=== PATIENT | female | born 1990 | race Hispanic/Latino ===

== ENCOUNTER 2019-08-01 09:24 | Inpatient (IN) | payer MEDICAID ==
[2019-08-01] MEDS ORDERED: ZOFRAN IV PRN (10:14)
[2019-08-01] MEDS ORDERED: BRETHINE SUB-Q PRN (10:14)
[2019-08-01] MEDS ORDERED: MINERAL OIL PO PRN (10:14)
[2019-08-01 10:59] LABS: Hematocrit 27.8 % (30.3-42.9); Hemoglobin 9.5 gm/dl (10.1-14.3); Mean Corpuscular HGB Conc 34 % (30-34); Mean Corpuscular Volume 77 fl (79-97); Platelet Count 166 K/mm3 (140-440); Red Blood Count 3.63 M/mm3 (3.65-5.03); Red Cell Distribution Width 15.2 % (13.2-15.2)
[2019-08-01] MEDS ORDERED: PITOCin/NS 20 UNIT/1000ML DRIP 20 UNITS/1,000 ML BAG IV SCH (11:00)
[2019-08-01] MEDS: LACTATED RINGERS 1,000 ML IV SCH ×2 (11:53→19:32)
[2019-08-01] MEDS ORDERED: XYLOCAINE 2% INFILTRATI ONE (12:00)
[2019-08-01] MEDS ORDERED: AMPICILLIN/NS 2 GM/100 ML 2 GM/100 ML BAG IV ONE (12:14)
[2019-08-01] MEDS: PITOCin/NS 30 UNIT/500ML 30 UNITS/500 ML BAG IV SCH ×2 (12:17→15:50)
--- NOTE | 2019-08-01 13:45 | History and Physical Report ---
History of Present Illness Date of examination: 08/01/19 Date of admission: 08/01/19 09:24 Chief complaint: IOL @ 41+4 History of present illness: EDC Confirmation: 07/21/2019 Past History : 4 Term Births: 1 Living Children: 1 Para: 1 Aborta: 2 Elect. Ab: 2 # 1 Delivery date: 2014 Weeks Gestation: term labor: no Delivery type: Anesthesia type: epidural Sex: Female weight: 7# Risk Factors: Smoked Tobacco Use: Former smoker Smokeless Tobacco Use: Never Passive smoke exposure: no Drug use: no HIV high-risk behavior: no Alcohol use: no Exercise: yes Times per week: 1 Type of Exercise: walking Seatbelt use: 100 % Dietary Counseling: pn yes Past Medical History: Negative Past Medical History Past Surgical History: negative Past Medical History Anesthesia Complications: negative Anemia: negative Autoimmune Disorder: negative Bleeding Disorder: negative Blood Transfusions: negative Breast Disease: negative Diabetes: negative Heart Disease: negative Hypertension: negative Hepatitis/Liver Disease: negative Kidney Disease/UTI: negative Neurologic/Epilepsy/Migraines: negative Phlebitis/Varicosities: negative Psychiatric: negative Pulmonary Disease/Asthma: negative Thyroid Disease: negative Hospitalizations: negative Surgery (Non-gynecology teacher): negative Abnormal PAP: negative Social Hx: Single not working no ETOH/Drugs/Smoking Infection History Hx of STD: none HIV Risk Eval: no Hepatitis B Risk Eval: low risk Personal hx. of genital herpes: no Partner hx. of genital herpes: no Rash, Viral, or Febrile illness since last LMP? no Varicella/Chicken Pox Status: Previous Disease Genetic History Congenital Heart Defect: Mom: no Dad: no Xiomara Disease: Mom: no Dad: no Thalassemia Mom: no Dad: no Neural Tube Defect Mom: no Dad: no Down's Syndrome Mom: no Dad: no Joseph-Sachs Mom: no Dad: no Sickle Cell Disease/Trait Mom: no Dad: no Hemophilia Mom: no Dad: no Muscular Dystrophy Mom: no Dad: no Cystic Fibrosis Mom: no Dad: no [place] Chorea Mom: no Dad: no Mental Retardation Mom: no Dad: no Fragile X Mom: no Dad: no Other Genetic/Chromosomal Disorder Mom: no Dad: no Child w/other defect Mom: no Dad: no Enviromental Exposures Xray Exposure: no Medication, drug, or alcohol use since LMP: no Chemical/Other Exposure: no Exposure to Cat Liter: no Hx of Parvovirus (Fifth Disease): no Occupational Exposure to Children: none Active Medications (reviewed today): None Current Allergies (reviewed today): No known allergies Past History Past Medical History: other (see HPI) Past Surgical History: other (see HPI) ADMEASURER History: trichomonas Family/Genetic History: other (see HPI) - Obstetrical History Expected Date of Delivery: 07/21/19 Actual Gestation: 41 Week(s) 4 Day(s) : 4 Para: 1 Hx # Term Pregnancies: 1 Number of Pregnancies: 0 Spontaneous Abortions: 0 Induced : 2 Number of Living Children: 1 Medications and Allergies Allergies Allergy/AdvReac Type Severity Reaction Status Date / Time No Known Allergies Allergy Unverified 08/01/19 11:01 Active Meds: Active Medications Ephedrine Sulfate (Ephedrine Sulfate) 10 mg IV Q2M PRN PRN Reason: Hypotension Oxytocin/Sodium Chloride (Pitocin/Ns 20 Unit/1000ml Drip) 20 units in 1,000 mls @ 125 mls/hr IV DIRECT TRACY Oxytocin/Sodium Chloride (Pitocin/Ns 30 Unit/500ml) 30 units in 500 mls @ 4 mls/hr IV TITR TRACY; Protocol Last Admin: 08/01/19 12:17 Dose: 4 ml/hr, 4 mls/hr Documented by: Lactated Ringer's (Lactated Ringers) 1,000 mls @ 125 mls/hr IV DIRECT TRACY Last Admin: 08/01/19 11:53 Dose: 125 mls/hr Documented by: Ampicillin Sodium (Ampicillin/Ns 1 Gm/50 Ml) 1 gm in 50 mls @ 100 mls/hr IV Q4H TRACY; Protocol Mineral Oil (Mineral Oil) 30 ml PO QHS PRN PRN Reason: Constipation Ondansetron HCl (Zofran) 4 mg IV Q8H PRN PRN Reason: Nausea And Vomiting Terbutaline Sulfate (Brethine) 0.25 mg SUB-Q ONCE PRN PRN Reason: Hyperstimulation/Hypertonicity Review of Systems All systems: negative - Vital Signs Vital signs: Vital Signs Pulse Pulse Ox 118 H 97 08/01/19 10:44 08/01/19 10:44 Temp Pulse Resp BP Pulse Ox 98.6 F 111 H 16 115/64 97 08/01/19 10:54 08/01/19 11:40 08/01/19 10:54 08/01/19 10:55 08/01/19 11:40 - Physical Exam Breasts: Positive: normal Cardiovascular: Regular rate Lungs: Positive: Clear to auscultation, Normal air movement Abdomen: Positive: normal appearance, soft Genitourinary (Female): Positive: normal external genitalia, normal perenium Vulva: both: normal Vagina: Positive: normal moisture Uterus: Positive: normal size, normal contour Anus/Rectum: Positive: normal perianal skin Extremities: Positive: normal Deep Tendon Reflex Grade: Normal +2 - Obstetrical FHR: category 1 Uterine Contraction Monitor Mode: External Cervical Dilatation: 2 Cervical Effacement Percentage: 60 station: -2 Uterine Contraction Frequency (min): 2-3 Uterine Contraction Duration: 60 Uterine Contraction Pattern: Regular Uterine Tone Measurement Phase: Contraction Uterine Contraction Intensity: Mild Results Result Diagrams: 08/01/19 10:33 Abnormal lab results 08/01/19 Range/Units 10:33 RBC 3.63 L (3.65-5.03) M/mm3 Hgb 9.5 L (10.1-14.3) gm/dl Hct 27.8 L (30.3-42.9) % MCV 77 L (79-97) fl MCH 26 L (28-32) pg All other labs normal. Assessment and Plan patient admitted for postdates IOL. Admission orders in EMR. Pitocin per protocol, GBS prophylaxis per protocol. EFW 7#13oz in office 07/25/19. Anticipate . - Patient Problems (1) 41 weeks gestation of Current Visit: Yes Status: Acute (2) Anemia Current Visit: Yes Status: Acute (3) GBS (group B Streptococcus carrier), +RV culture, currently Current Visit: Yes Status: Acute Plan to address problem: ampicillin q4hr until delivery (4) Trichomonal vaginitis during in third trimester Current Visit: Yes Status: Acute
[2019-08-01] MEDS ORDERED: STADOL IV PRN (14:00)
[2019-08-01] MEDS ORDERED: STADOL ONE (14:03)
[2019-08-01] MEDS: AMPICILLIN/NS 1 GM/50 ML 1 GM/50 ML BAG IV SCH ×2 (14:09→20:42)
--- NOTE | 2019-08-01 15:09 | Anesthesia Consultation ---
Anesthesia Consult and Med Hx Date of service: 08/01/19 - Airway Anesthetic Teeth Evaluation: Good ROM Head & Neck: Adequate Mental/Hyoid Distance: Adequate Mallampati Class: Class II Intubation Access Assessment: Good - Pulmonary Exam CTA: Yes - Cardiac Exam Cardiac Exam: RRR - Pre-Operative Health Status ASA Pre-Surgery Classification: ASA2, Emergency Proposed Anesthetic Plan: Epidural - Pulmonary Hx Asthma: No COPD: No Hx Pneumonia: No - Cardiovascular System Hx Hypertension: No - Central Nervous System Hx Seizures: No Hx Psychiatric Problems: No - Endocrine Hx Renal Disease: No Hx End Stage Renal Disease: No Hx Hypothyroidism: No Hx Hyperthyroidism: No - Hematic Hx Anemia: No Hx Sickle Cell Disease: No - Other Systems Hx Alcohol Use: No
[2019-08-01] MEDS ORDERED: SUBLIMAZE ONE (15:13)
[2019-08-01] MEDS ORDERED: MARCAINE 0.25% INFILTRATI ONE (15:13)
[2019-08-01] MEDS ORDERED: NALOXONE IV PRN (15:30)
[2019-08-01] MEDS ORDERED: fentaNYL-BUPIV 2 MCG/ML-0.125% 200 MCG/100 ML BAG EPIDURAL SCH (16:00)
[2019-08-01] MEDS ORDERED: BICITRA PO ONE (18:56)
--- NOTE | 2019-08-01 22:39 | Progress Note ---
Assessment and Plan patient c/o increased vaginal and rectal pressure with ctx, patient repositioned to right side and epidural bolus button given to patient. will call anesthesia for redose if bolus button not effective for pain. encouraged patient to notify rn if she feels need to push. third dose of abx for GBS complete. - Patient Problems (1) 41 weeks gestation of Current Visit: Yes Status: Acute (2) Anemia Current Visit: Yes Status: Acute (3) GBS (group B Streptococcus carrier), +RV culture, currently Current Visit: Yes Status: Acute Plan to address problem: ampicillin q4hr until delivery Subjective - Subjective Date of service: 08/01/19 Principal diagnosis: IUP @ 41+4 Interval history: EDC Confirmation: 07/21/2019 Past History : 4 Term Births: 1 Living Children: 1 Para: 1 Aborta: 2 Elect. Ab: 2 # 1 Delivery date: 2013 Weeks Gestation: term labor: no Delivery type: Anesthesia type: epidural Infant Sex: Female weight: 7# Risk Factors: Smoked Tobacco Use: Former smoker Smokeless Tobacco Use: Never Passive smoke exposure: no Drug use: no HIV high-risk behavior: no Alcohol use: no Exercise: yes Times per week: 1 Type of Exercise: walking Seatbelt use: 100 % Dietary Counseling: pn yes Past Medical History: Negative Past Medical History Past Surgical History: negative Past Medical History Anesthesia Complications: negative Anemia: negative Autoimmune Disorder: negative Bleeding Disorder: negative Blood Transfusions: negative Breast Disease: negative Diabetes: negative Heart Disease: negative Hypertension: negative Hepatitis/Liver Disease: negative Kidney Disease/UTI: negative Neurologic/Epilepsy/Migraines: negative Phlebitis/Varicosities: negative Psychiatric: negative Pulmonary Disease/Asthma: negative Thyroid Disease: negative Hospitalizations: negative Surgery (Non-software systems architect): negative Abnormal PAP: negative Social Hx: Single not working no ETOH/Drugs/Smoking Infection History Hx of STD: none HIV Risk Eval: no Hepatitis B Risk Eval: low risk Personal hx. of genital herpes: no Partner hx. of genital herpes: no Rash, Viral, or Febrile illness since last LMP? no Varicella/Chicken Pox Status: Previous Disease Genetic History Congenital Heart Defect: Mom: no Dad: no Xiomara Disease: Mom: no Dad: no Thalassemia Mom: no Dad: no Neural Tube Defect Mom: no Dad: no Down's Syndrome Mom: no Dad: no Joseph-Sachs Mom: no Dad: no Sickle Cell Disease/Trait Mom: no Dad: no Hemophilia Mom: no Dad: no Muscular Dystrophy Mom: no Dad: no Cystic Fibrosis Mom: no Dad: no [place] Chorea Mom: no Dad: no Mental Retardation Mom: no Dad: no Fragile X Mom: no Dad: no Other Genetic/Chromosomal Disorder Mom: no Dad: no Child w/other defect Mom: no Dad: no Enviromental Exposures Xray Exposure: no Medication, drug, or alcohol use since LMP: no Chemical/Other Exposure: no Exposure to Cat Liter: no Hx of Parvovirus (Fifth Disease): no Occupational Exposure to Children: none Active Medications (reviewed today): None Current Allergies (reviewed today): No known allergies Patient reports: new complaints (rectal and vaginal pressure), loss of fluid Objective - Vital Signs Vital Signs: Vital Signs - 12hr 08/01/19 08/01/19 08/01/19 10:44 10:49 10:54 Temperature 98.6 F Pulse Rate 118 H 114 H 107 H Respiratory 16 Rate Blood Pressure Blood Pressure 115/64 [Left] O2 Sat by Pulse 97 97 97 Oximetry 08/01/19 08/01/19 08/01/19 10:55 11:00 11:05 Temperature Pulse Rate 97 H 105 H 95 H Respiratory Rate Blood Pressure 115/64 Blood Pressure [Left] O2 Sat by Pulse 97 98 Oximetry 08/01/19 08/01/19 08/01/19 11:10 11:15 11:20 Temperature Pulse Rate 105 H 120 H 107 H Respiratory Rate Blood Pressure Blood Pressure [Left] O2 Sat by Pulse 95 97 97 Oximetry 08/01/19 08/01/19 08/01/19 11:25 11:30 11:35 Temperature Pulse Rate 96 H 105 H 97 H Respiratory Rate Blood Pressure Blood Pressure [Left] O2 Sat by Pulse 97 97 97 Oximetry 08/01/19 08/01/19 08/01/19 11:40 15:13 15:18 Temperature Pulse Rate 111 H 88 87 Respiratory Rate Blood Pressure Blood Pressure [Left] O2 Sat by Pulse 97 97 97 Oximetry 08/01/19 08/01/19 08/01/19 15:23 15:25 15:27 Temperature Pulse Rate 106 H 86 108 H Respiratory Rate Blood Pressure 132/75 135/72 Blood Pressure [Left] O2 Sat by Pulse 97 Oximetry 08/01/19 08/01/19 08/01/19 15:28 15:32 15:33 Temperature Pulse Rate 112 H 87 94 H Respiratory Rate Blood Pressure 117/66 Blood Pressure [Left] O2 Sat by Pulse 98 97 Oximetry 08/01/19 08/01/19 08/01/19 15:37 15:38 15:42 Temperature Pulse Rate 85 84 77 Respiratory Rate Blood Pressure 108/58 108/57 Blood Pressure [Left] O2 Sat by Pulse 97 Oximetry 08/01/19 08/01/19 08/01/19 15:43 15:47 15:48 Temperature Pulse Rate 83 80 104 H Respiratory Rate Blood Pressure 103/56 Blood Pressure [Left] O2 Sat by Pulse 97 97 Oximetry 08/01/19 08/01/19 08/01/19 15:52 15:53 15:57 Temperature Pulse Rate 90 98 H 75 Respiratory Rate Blood Pressure 112/60 117/61 Blood Pressure [Left] O2 Sat by Pulse 97 Oximetry 08/01/19 08/01/19 08/01/19 15:58 16:02 16:03 Temperature Pulse Rate 100 H 71 72 Respiratory Rate Blood Pressure 111/59 Blood Pressure [Left] O2 Sat by Pulse 97 97 Oximetry 08/01/19 08/01/19 08/01/19 16:07 16:08 16:12 Temperature Pulse Rate 88 99 H 95 H Respiratory Rate Blood Pressure 112/56 107/60 Blood Pressure [Left] O2 Sat by Pulse 97 Oximetry 08/01/19 08/01/19 08/01/19 16:13 16:17 16:18 Temperature Pulse Rate 92 H 114 H 130 H Respiratory Rate Blood Pressure 110/57 Blood Pressure [Left] O2 Sat by Pulse 97 98 Oximetry 08/01/19 08/01/19 08/01/19 16:22 16:23 16:28 Temperature Pulse Rate 104 H 122 H 139 H Respiratory Rate Blood Pressure 113/63 87/51 Blood Pressure [Left] O2 Sat by Pulse 97 99 Oximetry 08/01/19 08/01/19 08/01/19 16:30 16:33 16:38 Temperature Pulse Rate 69 85 100 H Respiratory Rate Blood Pressure 129/64 115/65 Blood Pressure [Left] O2 Sat by Pulse 97 97 Oximetry 08/01/19 08/01/19 08/01/19 16:43 16:48 16:53 Temperature Pulse Rate 76 89 117 H Respiratory Rate Blood Pressure Blood Pressure [Left] O2 Sat by Pulse 96 96 97 Oximetry 08/01/19 08/01/19 08/01/19 16:58 17:03 17:04 Temperature Pulse Rate 72 104 H 129 H Respiratory Rate Blood Pressure 121/69 Blood Pressure [Left] O2 Sat by Pulse 98 97 Oximetry 08/01/19 08/01/19 08/01/19 17:08 17:12 17:18 Temperature Pulse Rate 79 92 H 67 Respiratory Rate Blood Pressure Blood Pressure [Left] O2 Sat by Pulse 98 97 95 Oximetry 08/01/19 08/01/19 08/01/19 17:23 17:28 17:33 Temperature Pulse Rate 83 93 H 113 H Respiratory Rate Blood Pressure Blood Pressure [Left] O2 Sat by Pulse 97 98 97 Oximetry 08/01/19 08/01/19 08/01/19 17:35 17:37 17:43 Temperature Pulse Rate 75 116 H 73 Respiratory Rate Blood Pressure 115/60 Blood Pressure [Left] O2 Sat by Pulse 97 97 Oximetry 08/01/19 08/01/19 08/01/19 17:48 17:53 17:58 Temperature Pulse Rate 85 85 73 Respiratory Rate Blood Pressure Blood Pressure [Left] O2 Sat by Pulse 96 98 97 Oximetry 08/01/19 08/01/19 08/01/19 18:03 18:04 18:08 Temperature Pulse Rate 86 96 H 102 H Respiratory Rate Blood Pressure 116/57 Blood Pressure [Left] O2 Sat by Pulse 96 97 Oximetry 08/01/19 08/01/19 08/01/19 18:13 18:17 18:23 Temperature Pulse Rate 94 H 80 78 Respiratory Rate Blood Pressure Blood Pressure [Left] O2 Sat by Pulse 98 97 97 Oximetry 08/01/19 08/01/19 08/01/19 18:28 18:33 18:34 Temperature Pulse Rate 82 81 84 Respiratory Rate Blood Pressure 107/64 Blood Pressure [Left] O2 Sat by Pulse 98 96 Oximetry 08/01/19 08/01/19 08/01/19 18:37 18:42 18:47 Temperature Pulse Rate 78 102 H 114 H Respiratory Rate Blood Pressure Blood Pressure [Left] O2 Sat by Pulse 97 97 98 Oximetry 08/01/19 08/01/19 08/01/19 18:52 18:57 19:02 Temperature Pulse Rate 102 H 80 102 H Respiratory Rate Blood Pressure Blood Pressure [Left] O2 Sat by Pulse 96 97 99 Oximetry 08/01/19 08/01/19 08/01/19 19:05 19:07 19:12 Temperature Pulse Rate 92 H 91 H 99 H Respiratory Rate Blood Pressure 121/71 Blood Pressure [Left] O2 Sat by Pulse 98 97 Oximetry 08/01/19 08/01/19 08/01/19 19:17 19:22 19:27 Temperature Pulse Rate 100 H 83 78 Respiratory Rate Blood Pressure Blood Pressure [Left] O2 Sat by Pulse 97 98 97 Oximetry 08/01/19 08/01/19 08/01/19 19:32 19:34 19:37 Temperature Pulse Rate 84 106 H 82 Respiratory Rate Blood Pressure 120/57 Blood Pressure [Left] O2 Sat by Pulse 97 96 Oximetry 08/01/19 08/01/19 08/01/19 19:42 19:47 19:52 Temperature Pulse Rate 86 81 99 H Respiratory Rate Blood Pressure Blood Pressure [Left] O2 Sat by Pulse 96 97 97 Oximetry 08/01/19 08/01/19 08/01/19 19:57 20:02 20:04 Temperature Pulse Rate 109 H 111 H 93 H Respiratory Rate Blood Pressure 119/68 Blood Pressure [Left] O2 Sat by Pulse 97 97 Oximetry 08/01/19 08/01/19 08/01/19 20:07 20:12 20:17 Temperature Pulse Rate 100 H 91 H 85 Respiratory Rate Blood Pressure Blood Pressure [Left] O2 Sat by Pulse 96 95 98 Oximetry 08/01/19 08/01/19 08/01/19 20:22 20:27 20:32 Temperature Pulse Rate 101 H 89 109 H Respiratory Rate Blood Pressure Blood Pressure [Left] O2 Sat by Pulse 97 98 97 Oximetry 08/01/19 08/01/19 08/01/19 20:35 20:37 20:42 Temperature Pulse Rate 77 121 H 76 Respiratory Rate Blood Pressure 107/51 Blood Pressure [Left] O2 Sat by Pulse 97 98 Oximetry 08/01/19 08/01/19 08/01/19 20:47 20:52 20:57 Temperature Pulse Rate 115 H 95 H 87 Respiratory Rate Blood Pressure Blood Pressure [Left] O2 Sat by Pulse 97 97 97 Oximetry 08/01/19 08/01/19 08/01/19 21:02 21:05 21:07 Temperature Pulse Rate 110 H 86 94 H Respiratory Rate Blood Pressure 98/61 Blood Pressure [Left] O2 Sat by Pulse 96 99 Oximetry 08/01/19 08/01/19 08/01/19 21:12 21:17 21:22 Temperature Pulse Rate 87 93 H 95 H Respiratory Rate Blood Pressure Blood Pressure [Left] O2 Sat by Pulse 98 98 97 Oximetry 08/01/19 08/01/19 08/01/19 21:27 21:32 21:35 Temperature Pulse Rate 95 H 104 H 78 Respiratory Rate Blood Pressure 116/74 Blood Pressure [Left] O2 Sat by Pulse 98 97 Oximetry 08/01/19 08/01/19 08/01/19 21:37 21:42 21:47 Temperature Pulse Rate 85 80 111 H Respiratory Rate Blood Pressure Blood Pressure [Left] O2 Sat by Pulse 97 97 97 Oximetry 08/01/19 08/01/19 08/01/19 21:52 21:57 22:02 Temperature Pulse Rate 103 H 94 H 83 Respiratory Rate Blood Pressure Blood Pressure [Left] O2 Sat by Pulse 97 97 97 Oximetry 08/01/19 08/01/19 08/01/19 22:04 22:07 22:12 Temperature Pulse Rate 103 H 93 H 91 H Respiratory Rate Blood Pressure 118/66 Blood Pressure [Left] O2 Sat by Pulse 96 97 Oximetry 08/01/19 08/01/19 08/01/19 22:17 22:20 22:22 Temperature Pulse Rate 111 H 104 H 89 Respiratory Rate Blood Pressure Blood Pressure [Left] O2 Sat by Pulse 95 94 97 Oximetry 08/01/19 22:27 Temperature Pulse Rate 102 H Respiratory Rate Blood Pressure Blood Pressure [Left] O2 Sat by Pulse 98 Oximetry - Exam Breasts: normal Cardiovascular: Regular rate Lungs: Clear to auscultation, Normal air movement Abdomen: Present: normal appearance, soft Vulva: both: normal Uterus: Present: normal, fundal height above umbilicus FHR: category 1 Uterine Contraction Monitor Mode: Internal Cervical Dilatation: 7 Cervical Effacement Percentage: 90 station: -2 Uterine Contraction Frequency (min): 2-3 Uterine Contraction Duration: 60 Uterine Contraction Pattern: Regular Uterine Tone Measurement Phase: Contraction Uterine Contraction Intensity: Strong/Firm Extremities: normal Deep Tendon Reflex Grade: Normal +2 - Labs Labs: Abnormal Labs 08/01/19 10:33 RBC 3.63 L Hgb 9.5 L Hct 27.8 L MCV 77 L MCH 26 L Laboratory Results - last 24 hr 08/01/19 08/01/19 08/01/19 10:33 10:33 10:33 WBC 8.3 RBC 3.63 L Hgb 9.5 L Hct 27.8 L MCV 77 L MCH 26 L MCHC 34 RDW 15.2 Plt Count 166 RPR Nonreactive Blood Type A POSITIVE Antibody Screen Negative
[2019-08-02] MEDS ORDERED: BICITRA PO ONE (00:54)
[2019-08-02] MEDS ORDERED: PEPCID IV ONE (00:54)
[2019-08-02] MEDS ORDERED: REGLAN IV ONE (00:54)
[2019-08-02] MEDS ORDERED: REGLAN ONE (00:59)
[2019-08-02] MEDS ORDERED: PITOCin/NS 20 UNIT/1000ML DRIP 20 UNITS/1,000 ML BAG IV SCH ×2 (01:00→06:23)
[2019-08-02] MEDS ORDERED: LACTATED RINGERS 1,000 ML IV SCH (01:00)
[2019-08-02] MEDS ORDERED: ANCEF/STERILE WATER 2 GM/20 ML 2 GM/20 ML SYRINGE IV NR (01:00)
--- NOTE | 2019-08-02 01:17 | Event Note ---
Date: 08/02/19 Was called to the patient's room due to deep decelerations with pushing. Patient's cervix was bleeding and approximately +1+2 station. Patient was complaining of exhaustion. Attempted vacuum-assisted delivery was unsuccessful due to maternal exhaustion. heart decelerations continued and the decision was made to move section. Patient informed the risks of the surgery include bleeding possibly bleeding heavy enough to require blood transfusion, infection possible damage to bowel bladder ureter. All questions answered. Patient agrees to proceed. Patient desires permanent sterilization. Patient desires permanent sterilization. She declined temporary contraceptives. She understands the risks of the surgery include bleeding infection possible damage to bowel bladder or ureters. She understands that this surgery would make her permanently sterile. She also understands the approximate 1% failure rate. The patient understands all the above and desires to proceed.
--- NOTE | 2019-08-02 02:14 | Event Note ---
Date: 08/02/19 Late Entry: Patient complete with strong urge to push @ 2250. Pushing started. Family present and supportive.
--- NOTE | 2019-08-02 02:17 | Operative Report ---
Operative Report Operative Report: Date of procedure: 08/02/2019 Pre-operative diagnosis: Intrauterine at 41 weeks with arrest of desce nt, failed induction and nonreassuring heart tracing.. Patient desires permanent sterilization Post-operative diagnosis: Same Procedure name(s): Primary low transverse section with bilateral salpingectomy Surgeon: Ras Han MD Storeroom Attendant: Maite Edmondson, certified nurse duct layer supervisor Anesthesia: Epidural EBL: 700 mL Complications: None Findings: Normal uterus tubes and ovaries bilaterally. Female . Weight 7 lbs. 10 oz. Apgars 7 at 1 minute and 9 at 5 minutes Specimen(s): Bilateral fallopian tubes Procedure: The patient was brought to the operating room. Her epidural was dosed without any complications. She was then placed in left lateral tilt. Prepped and draped in the usual sterile manner. After testing for adequate anesthesia level, a Pfannenstiel incision was made through her previous scar. This incision was taken down to the fascia. The fascia was then nicked in the midline. This incision was extended out laterally with Murray scissors. The fascia was then sharply and bluntly from the underlying rectus muscles. The rectus muscles were bluntly and sharply . The peritoneum was then entered with the earth auger operator's fingers. This incision was spread vertically with care not to damage the bladder below. The [place] self-retaining tractor was then placed without any difficulty. The bladder flap was then formed sharply and bluntly with Metzenbaum scissors. A transverse incision was made in lower uterine segment. This incision was extended laterally with the operators fingers. The amniotic sac was then entered bluntly with the earth auger operator's fingers. The was delivered from the vertex position. Bulb suction on the mother's abdomen. Cord was double clamped and cut. The infant was then passed to the nursery personnel who were in attendance. The above scores were given by the nursery personnel. The placenta was then bluntly removed. The uterus was then externalized and wiped clean the remaining products. The uterine incision was closed in layers. The first incision was closed in a locking manner using 0 Vicryl. This was followed by imbricating stitch also with 0 Vicryl. Attention was then switched to the patient's fallopian tubes. Each fallopian tube was identified by its fimbriated end. A portion of each tube was grabbed with the Danielito clamp approximately 2 cm from the cornua. This proximal portion of tube was transected with Bovie. The distal tube was grasped with the second [place]. The mesosalpinx under this stretched fallopian tube was cauterized and cut with the Bovie extending to the fimbriated end of the tube and the tube was disconnected and remove. The remaining mesosalpinx was found to be hemostatic . This procedure was done successfully on both tubes Salpingectomies were done. Attention was then switched back to the uterine closure. This closure was hemostatic. The bladder flap was copiously irrigated and found to be hemostatic. The pelvis was copiously irrigated and found to be hemostatic. The uterus was then placed back to the patient's abdomen. The retractors were removed. The rectus muscles were inspected and found to be hemostatic. The fascia was then closed in a running manner using 0 Vicryl. This incision was hemostatic irrigation Bovie. The skin was reapproximated with 4-0 Vicryl subcuticularly. Dermabond was placed over the incision. The patient tolerated procedure well. Her urine was clear. The infant was admitted to the well baby nursery. The patient was accompanied to recovery room in good condition. Instrument count correct 3
--- NOTE | 2019-08-02 02:25 | Post Anesthesia Evaluation ---
- Post Anesthesia Evaluation Patient Participated: Yes Airway Patent: Yes Stable Respiratory Function: Yes Nausea/Vomiting: No Temp > 96.8F: Yes Pain Manageable: Yes Adequeate Hydration: Yes Anesthesia Complications: No Block Receding Appropriately: Yes Patient on Ventilator: No
--- NOTE | 2019-08-02 02:25 | Anesthesia Day of Surgery ---
Anesthesia Day of Surgery - Day of Surgery Patient Examined: Yes Patient H&P Reviewed: Yes Patient is NPO: Yes
[2019-08-02] MEDS ORDERED: ZOFRAN IV PRN (02:26)
[2019-08-02] MEDS ORDERED: PHENERGAN PO PRN (02:26)
[2019-08-02] MEDS ORDERED: NALOXONE IV PRN ×2 (02:26→06:23)
[2019-08-02] MEDS ORDERED: PHENERGAN PR PRN (02:26)
[2019-08-02] MEDS ORDERED: DILAUDID IV PRN ×2 (02:26)
[2019-08-02] MEDS ORDERED: SODIUM CHLORIDE FLUSH SYRINGE 10 ML IV NR ×2 (03:00→06:23)
[2019-08-02] MEDS ORDERED: MILK OF MAGNESIA PO PRN (06:23)
[2019-08-02] MEDS ORDERED: TUCKS PAD TP PRN (06:23)
[2019-08-02] MEDS ORDERED: LANSINOH TP PRN (06:23)
[2019-08-02] MEDS ORDERED: MYLICON PO PRN (06:23)
[2019-08-02] MEDS ORDERED: TYLENOL PO PRN (06:23)
[2019-08-02] MEDS ORDERED: MORPHINE IV PRN (06:23)
[2019-08-02] MEDS: TORADOL IV SCH ×3 (07:07→19:54)
[2019-08-02] MEDS: ANCEF/NS 1 GM/50 ML 1 GM/50 ML BAG IV SCH ×2 (09:07→17:21)
[2019-08-02] MEDS: PRENATAL VITAMIN PO SCH (09:07)
[2019-08-02] MEDS: FEOSOL PO SCH ×2 (09:07→21:19)
[2019-08-02] MEDS ORDERED: AFLURIA QUAD 2019-2020 (3YR UP) IM ONE (12:01)
[2019-08-02 15:16] LABS: Hematocrit 23.7 % (30.3-42.9); Hemoglobin 7.7 gm/dl (10.1-14.3)
[2019-08-02] MEDS: NORCO 5/325 PO PRN ×2 (16:12→21:19)
[2019-08-03] MEDS: TORADOL IV SCH (01:11)
[2019-08-03] MEDS: IBUPROFEN PO PRN ×4 (04:14→21:01)
[2019-08-03] MEDS: NORCO 5/325 PO PRN ×3 (05:08→23:37)
[2019-08-03] MEDS ORDERED: BOOSTRIX IM ONE (06:00)
[2019-08-03] MEDS ORDERED: M-M-R II VACCINE SUB-Q ONE (07:42)
[2019-08-03] MEDS: PRENATAL VITAMIN PO SCH (10:32)
[2019-08-03] MEDS: FEOSOL PO SCH ×2 (10:32→21:01)
--- NOTE | 2019-08-03 10:37 | Progress Note ---
Assessment and Plan - Patient Problems (1) Anemia Current Visit: Yes Status: Acute Qualifiers: Anemia type: iron deficiency Plan to address problem: h/h stable and pt has no symptoms at this time. Will replace po. (2) delivery delivered Current Visit: Yes Status: Acute Plan to address problem: -doing well -routine post op care -d/c home in am if remains AFVSS Subjective - Subjective Date of service: 08/03/19 Principal diagnosis: POD #1 s/p primary c/s Interval history: Pt is doing well. Ambulating well. She is tolerating a regular diet. Patient reports: appetite normal, voiding normally, pain well controlled, no dizzy ambulation : doing well Objective - Vital Signs Latest vital signs: Vital Signs Temp Pulse Resp BP BP Pulse Ox 08/03/19 07:15 98.1 F 88 20 104/57 95 08/03/19 05:08 18 08/03/19 04:14 18 08/03/19 00:13 98.2 F 77 20 102/59 96 08/02/19 21:19 18 08/02/19 20:20 98.4 F 72 18 106/54 08/02/19 19:54 18 08/02/19 16:18 98.0 F 80 18 110/57 Intake and Output 08/02/19 08/03/19 08/03/19 22:59 06:59 14:59 Intake Total 480 120 Output Total 500 200 Balance -20 -200 120 Intake: Oral 480 120 Output: Urine 500 200 Void 500 200 Other: Total, Intake Amount 480 120 Total, Output Amount 200 200 # Voids Void 1 1 - Exam Cardiovascular: Present: Normal S1, Normal S2 Lungs: Present: Clear to auscultation, Normal air movement Abdomen: Present: normal appearance, soft. Absent: distention, tenderness, guarding Uterus: Present: normal, firm, fundal height below umbilicus. Absent: bogginess, tenderness Extremities: Present: normal, edema (trace b/l) Incision: Present: normal, dry, intact, other (open to air with surgical glue in place) - Labs Labs: Abnormal lab results 08/02/19 Range/Units 14:28 Hgb 7.7 L (10.1-14.3) gm/dl Hct 23.7 L (30.3-42.9) %
[2019-08-04] MEDS: IBUPROFEN PO PRN ×2 (04:16→09:16)
[2019-08-04] MEDS: NORCO 5/325 PO PRN ×3 (05:49→13:36)
--- NOTE | 2019-08-04 07:38 | Discharge Summary ---
Providers - Providers Date of Admission: 08/01/19 09:24 Date of discharge: 08/04/19 (pt desires d/c home today POD #2) Attending physician: CECILIA HEATH Primary care physician: CECILIA HEATH Hospitalization Reason for admission: induction of labor Delivery: Procedure: section, bilateral tubal ligation Procedure details: see op note Incision: normal, dry, intact Discharge diagnosis: IUP at term delivered baby: female Hospital course: Pt was admitted for IOL. She then had c/s for failed IOL. Post op course has not been complicated. She has had anemia but has been w/o symptoms. She has had routine post op care. She will be d/c home today as per her request. Condition at discharge: Good Disposition: DC-01 TO HOME OR SELFCARE - Discharge Diagnoses (1) Anemia Status: Acute Qualifiers: Anemia type: iron deficiency (2) delivery delivered Status: Acute Plan - Discharge Medications Prescriptions: Ferrous Sulfate [Feosol 325 MG tab] 325 mg PO BID #60 tablet Ibuprofen [Motrin 800 MG tab] 800 mg PO Q6H PRN #30 tablet PRN Reason: Pain oxyCODONE /ACETAMINOPHEN [Percocet 5/325 mg] 1 - 2 tab PO Q4H PRN #20 tablet PRN Reason: Pain, Moderate - Provider Discharge Summary Activity: no sex for 6 weeks, no heavy lifting 4 weeks, no strenuous exercise Diet: routine Instructions: routine Additional instructions: [] Smoking cessation referral if applicable(refer to patient education folder for contact #) [] Refer to [facility] Booklet Call your doctor immediately for: * Fever > 100.5 * Heavy vaginal bleeding ( >1 pad per hour) * Severe persistent headache * Shortness of breath * Reddened, hot, painful area to leg or breast * Drainage or odor from incision. * Keep incision clean and dry at all times and follow doctor's instructions regarding bathing/showering - Follow up plan Follow up: CECILIA HEATH MD [Primary Care Provider] - 7 Days
[2019-08-04] MEDS: PRENATAL VITAMIN PO SCH (09:15)
[2019-08-04] MEDS: FEOSOL PO SCH (09:15)
[2019-08-04] MEDS ORDERED: AFLURIA QUAD 2019-2020 (3YR UP) IM ONE (14:00)
[2019-08-04 17:15] VITALS: BP 109/67
== END 2019-08-04 16:25 | disposition home or self-care (01) | DRG 765 ==
LOC: LD 09:24 → OB 08-02 03:23
PROVIDERS: ADMIT Obstetrics & Gynecology; ATTEND Obstetrics & Gynecology
PROC: 10D00Z1 Extraction of Products of Conception, Low, Open Approach (ICD-10-PCS; principal; 2019-08-02)
PROC: 0UB70ZZ Excision of Bilateral Fallopian Tubes, Open Approach (ICD-10-PCS; 2019-08-02)
PROC: 3E0234Z Introduction of Serum, Toxoid and Vaccine into Muscle, Percutaneous Approach (ICD-10-PCS; 2019-08-03)
DX: O76 Abnormality in fetal heart rate and rhythm complicating labor and delivery (principal); O98.32 Other infections with a predominantly sexual mode of transmission complicating childbirth; A59.01 Trichomonal vulvovaginitis; O48.0 Post-term pregnancy; O99.824 Streptococcus B carrier state complicating childbirth; O99.02 Anemia complicating childbirth; D50.0 Iron deficiency anemia secondary to blood loss (chronic); O62.1 Secondary uterine inertia; O61.9 Failed induction of labor, unspecified; Z3A.41 41 weeks gestation of pregnancy; Z37.0 Single live birth; Z23 Encounter for immunization; Z30.2 Encounter for sterilization
CPT/HCPCS: 36415; 85014; 85018; 85027; 86592; 86850; 86900; 86901; 88302; 90686; 90715; G0378; J0290; J0595; J0690; J1170; J1885; J2590; J2765; J3010; J7120